=== PATIENT | female | born 1950 | race Caucasian/White ===

== ENCOUNTER → 2019-11-24 | Outpatient (CLI) | payer MEDICARE ==
--- NOTE | 2019-11-24 11:23 | RAD ---
CT LOW DOSE LUNG SCREENING INDICATION: SMOKER X 40YRS,QUIT 10YRS AGO COMPARISON STUDY: None. TECHNIQUE: Unenhanced axial images were obtained through the lungs and upper abdomen using low dose technique. Coronal and sagittal multiplanar reformatted images were also obtained. PQRS compliance statement: One or more of the following individualized dose reduction techniques were utilized for this examination: 1. Automated exposure control 2. Adjustment of the mA and/or kV according to patient size 3. Use of iterative reconstruction technique FINDINGS: Lung Nodules: Left lower lobe superior segment part solid nodule measuring 1.5 x 1.0 x 1.4 cm (AP by TV by CC), with solid component measuring 0.7 cm. Right upper lobe 5 mm ground glass nodule (series 2 image 113). Left lower lobe 0.5 cm perifissural nodule with triangular morphology on multiplanar reformats, consistent with intrapulmonary lymphoid tissue. Calcified pulmonary granulomas. Lungs and Airways: Centrilobular and paraseptal emphysema. Bronchial wall thickening. Pleura: Normal pleural spaces. Heart and Mediastinum: The visualized portions of the thyroid gland are normal in size and attenuation. No axillary or supraclavicular lymphadenopathy. No mediastinal, hilar or retrocrural lymphadenopathy. Calcified mediastinal and right hilar lymph nodes consistent with remote granulomatous disease. Normal cardiac size. No pericardial effusion. Coronary artery atherosclerotic disease. Atherosclerosis of the thoracic aorta. Abdomen: The visualized abdominal organs demonstrate no abnormality. Bones and Soft Tissues: Degenerative changes of the spine. No aggressive lytic or blastic osseous lesions. IMPRESSION: 1. Left lower lobe subsolid nodule with 0.7 cm solid component. This may be below size threshold for PET sensitivity. Lung-RADS Category: 4A Management Recommendation: Follow up low-dose chest CT in 3 months. 2. No thoracic lymphadenopathy. 3. Emphysema. Electronically signed by: Hudson Pittman MD (11/24/2019 11:21 AM) [id number]
--- NOTE | 2019-11-24 13:14 | RAD ---
BONE DENSITY AXIAL History: Reason: / Spl. Instructions: / History: Postmenopausal TECHNIQUE: Dual energy x-ray absorptiometry of the lumbar spine and right hip was performed. T-score of average bone mineral density based was calculated based on standard deviations above or below the expected young adult normal value. Diagnostic definitions were established by the World Health Organization. FINDINGS: The average bone mineral density associated with L1-L4 is 1.048 g/cm^2, corresponding with a T-score of -1.1. The average total bone mineral density associated with right hip is 0.807 g/cm^2, corresponding with a T-score of -1.2. No comparison examinations are available. Refer to the worksheets for full detail. IMPRESSION: 1. Osteopenia according to the lumbar spine and right hip. Average bone mineral density yields a T-score between -1.0 and -2.5. Fracture risk is increased. Electronically signed by: Alex Francisco DO (11/24/2019 1:11 PM) [id number]
--- NOTE | 2019-12-02 08:20 | RAD ---
DATE: 11/24/2019 9:52 AM EXAM: DIGITAL SCREEN BILAT W/CAD HISTORY: Screening COMPARISON: 04/24/2013 Bilateral full field craniocaudal and mediolateral oblique images were obtained using digital technique. This study was interpreted with the benefit of Computerized Aided Detection (CAD). FINDINGS: Breast Density: HETERO The breast parenchyma Is heterogeneously dense, which could reduce sensitivity of mammography. Breast parenchyma level C No suspicious masses, microcalcifications or architectural distortion is present to suggest malignancy in either breast. The visualized axillae are unremarkable. IMPRESSION: No mammographic evidence of malignancy. BI-RADS CATEGORY: 1 NEGATIVE RECOMMENDED FOLLOW-UP: 12M 12 MONTH FOLLOW-UP Annual screening mammography is recommended, unless clinically indicated sooner based on symptoms or change in physical exam. PQRS compliance statement: Patient information was entered into a reminder system with a target due date for the next mammogram. Mammography is a sensitive method for finding small breast cancers, but it does not detect them all and is not a substitute for careful clinical examination. A negative mammogram does not negate a clinically suspicious finding and should not result in delay in biopsying a clinically suspicious abnormality. "Our facility is accredited by the [employer] Mammography Program."
== END ==
LOC: MAMMO 09:41
PROVIDERS: ATTEND Specialist
DX: Z12.2 Encounter for screening for malignant neoplasm of respiratory organs (principal); Z12.31 Encounter for screening mammogram for malignant neoplasm of breast; M81.0 Age-related osteoporosis without current pathological fracture; Z00.00 Encounter for general adult medical examination without abnormal findings; R91.8 Other nonspecific abnormal finding of lung field; I70.0 Atherosclerosis of aorta; I25.10 Atherosclerotic heart disease of native coronary artery without angina pectoris; J43.9 Emphysema, unspecified; M85.88 Other specified disorders of bone density and structure, other site; Z78.0 Asymptomatic menopausal state; Z87.891 Personal history of nicotine dependence
CPT/HCPCS: 77067; 77080; G0297

== ENCOUNTER → 2020-07-22 | Outpatient (CLI) | payer MEDICARE ==
--- NOTE | 2020-07-22 16:37 | RAD ---
PQRS Compliance Statement: One or more of the following individualized dose reduction techniques were utilized for this examinat ion: 1. Automated exposure control 2. Adjustment of the mA and/or kV according to patient size 3. Use of iterative reconstruction technique CT LOW DOSE LUNG SCREEN 07/22/2020 2:28 PM Indication: Solitary pulmonary nodule COMPARISON: CT chest 11/24/2019 TECHNIQUE: Multiple axial CT images of the chest were obtained without intravenous contrast utilizing low-dose technique. Coronal and sagittal reformats are provided. FINDINGS: There is a 4 mm solid noncalcified pulmonary nodule along the left major fissure (series 6, image 124 ), stable. 5 mm calcified granuloma identified in the left lower lobe (series 6, image 186) stable 3 mm solid noncalcified pulmonary nodule in the right upper lobe (series 6, image 130). There is a lucy d nodular opacity in the super segment left lower lobe measuring 1.6 x 1.1 cm with a solid central no dular component measuring 0.6 cm which is marginally increased with the solid component previously me asuring 0.5 cm and the subpleural solid component measuring 1.5 x 1.0 cm. Bronchial wall thickening c ompatible with nonspecific bronchitis. Mild centrilobular pulmonary emphysema. No pathologically enla rged thoracic lymph nodes. Calcified mediastinal and right hilar lymph nodes are identified. Heart si ze within normal limits. Three-vessel coronary artery vascular calcification are present. Small hiata l hernia is identified. No suspicious osseous abnormality. Mild thoracic spondylosis. IMPRESSION: Increase in size of a subsolid nodular opacity in the super segment left lower lobe with increasing s olid component as detailed above. Total measurements of the nodule measuring 1.6 x 1.1 cm, previously 1.5 x 1.0 cm. Lung RADS category 4A, suspicious. Consideration may be given for PET/CT versus tissue sampling versus 3 month follow-up chest CT. Mild centrilobular pulmonary emphysema and mild nonspecific bronchitis. Electronically signed by: Samantha Lacey MD (07/22/2020 4:34 PM) [id number]
== END ==
LOC: CT 14:16
PROVIDERS: ATTEND Specialist
DX: Z12.2 Encounter for screening for malignant neoplasm of respiratory organs (principal); R91.1 Solitary pulmonary nodule; I25.10 Atherosclerotic heart disease of native coronary artery without angina pectoris; K44.9 Diaphragmatic hernia without obstruction or gangrene; J43.2 Centrilobular emphysema; J40 Bronchitis, not specified as acute or chronic; M47.814 Spondylosis without myelopathy or radiculopathy, thoracic region; Z87.891 Personal history of nicotine dependence
CPT/HCPCS: 71271

== ENCOUNTER → 2021-05-26 | Outpatient (CLI) | payer MEDICARE ==
--- NOTE | 2021-05-26 15:11 | RAD ---
EXAMINATION: XR CHEST 2V CLINICAL HISTORY: Chest pain, nodules, left lobectomy is scheduled. EXAM DATE/TIME: 05/26/2021 1:49 PM COMPARISON: None FINDINGS: Lines, Tubes, and Devices: None. Cardiomediastinal Silhouette: Normal heart size. Aortic atherosclerotic calcification. Lungs and Pleura: No evidence of focal airspace consolidation or pleural effusion. Pulmonary vasculat ure unremarkable. Bones and Soft Tissues: No acute osseous abnormality. IMPRESSION: No evidence of acute cardiopulmonary abnormality. Electronically signed by: Oz Rosario DO (05/26/2021 3:08 PM) [id number]
== END ==
LOC: RAD 13:42
PROVIDERS: ATTEND Thoracic Surgery (Cardiothoracic Vascular Surgery)
DX: Z01.810 Encounter for preprocedural cardiovascular examination (principal); R91.1 Solitary pulmonary nodule; I70.0 Atherosclerosis of aorta
CPT/HCPCS: 71046